=== PATIENT | male | born 1985 | race Two or more races ===

== ENCOUNTER 2024-03-14 20:25 | Emergency (ER) | payer OTHER ==
[~2024-03-14] VITALS: Ht 182.9 cm; Wt 93.0 kg
[2024-03-14] MEDS ORDERED: ACETAMINOPHEN ES 500 MG TABLET ONE (22:33)
[2024-03-14] MEDS ORDERED: KETOROLAC TROMETHAMINE INJ 30 MG/ML VIAL ONE (22:33)
[2024-03-14] MEDS: KETOROLAC TROMETHAMINE 15 MG/ML VIAL IM ONE (22:39)
[2024-03-14] MEDS: ACETAMINOPHEN ES 500 MG TABLET PO ONE (22:39)
[2024-03-14 23:25] VITALS: BP 148/80; TEMP 98.3; O2SAT 98
== END 2024-03-14 23:26 | disposition home or self-care (01) ==
LOC: ER 20:32
DX: S06.0X0A Concussion without loss of consciousness, initial encounter (principal); S13.4XXA Sprain of ligaments of cervical spine, initial encounter; Z60.2 Problems related to living alone; V89.0XXA Person injured in unspecified motor-vehicle accident, nontraffic, initial encounter; Y93.89 Activity, other specified; Y92.89 Other specified places as the place of occurrence of the external cause; Y99.8 Other external cause status
CPT/HCPCS: 99285; 72125; 96372; 70450; J1885